=== PATIENT | male | born 1970 | race American Indian/Alaskan Native ===

== ENCOUNTER 2019-11-28 10:16 | Outpatient (CLI) | payer MEDICAID ==
--- NOTE | 2019-11-28 11:14 | XRay Report ---
CHEST 2 VIEWS INDICATION: HEAVY CHRONIC SMOKING/ PRESUMPTIVE COPD. COMPARISON: None FINDINGS: Support devices: None. Heart: Within normal limits. Lungs/pleura: No acute air space or interstitial disease. No pneumothorax. The lungs are mildly hype rinflated which could represent mild emphysematous changes. No advanced COPD. Additional findings: None. IMPRESSION: No acute findings. Question mild emphysema. Signer Name: Carlos Koroma Jr, MD Signed: 11/28/2019 11:09 AM Workstation Name: [id number]
== END 2019-11-28 10:17 | disposition home or self-care (01) ==
LOC: XRAY 10:16
PROVIDERS: ATTEND Internal Medicine
DX: J44.9 Chronic obstructive pulmonary disease, unspecified (principal); R07.9 Chest pain, unspecified
CPT/HCPCS: 71046